=== PATIENT | female | born 1995 | race Caucasian/White ===

== ENCOUNTER 2017-11-14 08:15 | Emergency (ER) | payer OTHER, SELFPAY ==
[2017-11-14 08:24] VITALS: BP 98/68; PULSE 80; RESP 15; TEMP 36.1; O2SAT 100; BMI 25.1
--- NOTE | 2017-11-14 08:38 | DI.US.S_ITS ---
PROCEDURE: US PERIPH VENOUS LOW EXTREM LT INDICATIONS: pain in left popliteal fossa. DVT? TECHNIQUE: Real-time imaging, as well as color and pulse Doppler interrogation, were performed of the lower extremity deep veins from the inguinal ligament to the popliteal fossa. COMPARISON: None. FINDINGS: The deep veins are normally compressible, and free of intraluminal thrombus. Color and pulse Doppler demonstrate normal phasic intraluminal flow. There is normal augmentation response to distal compression maneuver. IMPRESSION: No DVT in the left lower extremity. Dictated by: Teodoro Douglas M.D. on 11/14/2017 at 10:28 Approved by: Teodoro Douglas M.D. on 11/14/2017 at 10:28
--- NOTE | 2017-11-14 09:38 | ED.LOWEXIN ---
HPI - Extremity Injury (Lower) General Chief Complaint: Extremity Injury, Lower Stated Complaint: PAIN IN LEFT KNEE Time Seen by Provider: 11/14/17 08:20 History of Present Illness HPI Narrative: HPI 22-year-old female presents for evaluation of one week of poorly characterized left knee pain that is greatest in popliteal fossa, is without clear provoking or relieving factors, and occurred without identifiable preceding trauma. Patient denies a history of DVT, PE, estrogen use. Patient denies shortness breath, patient denies change in baseline level of activity. Patient denies swelling, warmth, fevers, chills. Patient notes normal left lower extremity sensation. ROS with no recent constitutional symptoms. Exam HR 80, BP 98/60, RR 15, T 96.9 ?F, SaO2 100 % on room air. Gen: Pleasant, non-toxic appearing, resting comfortably HEENT: NC, AT, PEERL, EOMI. Resp: Clear to auscultation bilaterally. Unlabored respirations with a normal work of breathing. Card: Regular rate and rhythm. Extremities warm and well perfused. GI: Non-distended. : Deferred MSK: Left knee with full functional range of motion, no tenderness to palpation over the patella, fibular head, or joint line. Mild popliteal fossa to palpation. No MCL or LCL tenderness to palpation, negative Delfina and posterior drawer test. No tenderness to palpation on the quadriceps or patellar tendon, both tendons intact on knee extension. No swelling, ecchymosis or effusion. Calf without visible or palpable trauma, muscle compartments soft and non-tender to palpation. 2+ DP and PT pulses. Neuro: AO x 3, no facial asymmetry, vision and hearing WNL. Heme/Lymph: Deferred Skin: Normal color with no visible lesions (other than noted above). Psych: Mood and affect appropriate. US LLE: no DVT. MDM Previous chart, nursing note, and vitals reviewed. A: 22-year-old female presents for evaluation of one week of poorly characterized left knee pain that is greatest in popliteal fossa, is without clear provoking or relieving factors, and occurred without identifiable preceding trauma. DDx & Evaluation: history and exam without evidence of traumatic osseous injury, no evidence of crystalline arthropathy, septic arthritis, ligamentous, tendinous, or meniscal injury. Ultrasound without evidence of DVT or Levy's cyst. Patient instructed to use NSAIDs and follow up with her PCP 3-4 days for repeat evaluation further care. Impression: left knee pain (please reference below for remainder of encounter information) Related Data Home Medications Medication Instructions Recorded Confirmed acetaminophen [Acetaminophen Extra 1,000 mg PO Q6H PRN 11/14/17 11/14/17 Strength] Allergies Allergy/AdvReac Type Severity Reaction Status Date / Time No Known Drug Allergies Allergy Verified 11/14/17 08:23 [facility] Social History Smoking Status: Current every day smoker Exam Initial Vital Signs Initial Vital Signs: Vital Signs Temperature 96.9 F L 11/14/17 08:24 Pulse Rate 80 11/14/17 08:24 Respiratory Rate 15 11/14/17 08:24 Blood Pressure 98/68 11/14/17 08:24 Pulse Oximetry 100 11/14/17 08:24 Course Orders Ordered: ED Orders 11/14/17 08:38 US periph venous low extrem lt Stat 11/14/17 09:05 US abdomen limited Stat Test Urine Stat 11/14/17 09:06 Complete Blood Count AUTO DIFF Stat Comprehensive Metabolic Panel Stat Lipase Stat Vital Signs - 8 hr 11/14/17 08:24 Temperature 96.9 F L Pulse Rate 80 Respiratory Rate 15 Blood Pressure 98/68 Pulse Oximetry 100 Discharge Plan Departure Prescriptions: No Action acetaminophen [Acetaminophen Extra Strength] 500 mg Tablet 1,000 mg PO Q6H PRN (Reason: Pain (Scale Score 1-3)) RF: 0
[2017-11-14 09:47] VITALS: BP 97/55; PULSE 57; RESP 16; O2SAT 100
--- NOTE | 2017-11-20 09:58 | PC.NURSE ---
attempted f/u phone call, no answer
== END 2017-11-14 09:59 | disposition home or self-care (01) ==
PROVIDERS: Emergency Provider Emergency Medicine
DX: M25.562 Pain in left knee (principal)
CPT/HCPCS: 93971; 99282; 99283